=== PATIENT | female | born 1955 | race Caucasian/White ===

== ENCOUNTER 2020-06-11 21:02 | Observation (INO) ==
[2020-06-11] MEDS ORDERED: Isovue-370 500 ML BOTTLE IVP ONE (21:16)
[2020-06-11] MEDS ORDERED: Ondansetron 4 MG/2 ML VIAL IVP ONE (21:42)
[2020-06-11] MEDS ORDERED: 0.9 % Sodium Chloride 1,000 ML IVC ONE (21:42)
[2020-06-11 21:54] LABS: Basophils # 0.1 K/mcL (0.0-0.2); Basophils % 0.5 %; Eosinophils # 0.2 K/mcL (0.0-0.6); Eosinophils % 1.4 %; Hematocrit 40.7 % (35.3-44.9); Hemoglobin 13.3 g/dL (11.5-15.4); Immature Granulocytes % 0.3 % (0-4); Lymphocytes % 16.8 %; Mean Corpuscular HGB Conc 32.7 g/dL (31.6-35.5); Mean Corpuscular Volume 88.9 fL (83.0-100.0); Monocytes # 0.8 K/mcL (0.0-1.3); Monocytes % 6.7 %; Neutrophils # 8.8 K/mcL (1.6-8.9); Platelet Count 314 K/mcL (140-400); Red Blood Count 4.58 M/mcL (3.82-4.97); Red Cell Distribution Width 13.5 % (11.5-14.5); Segmented Neutrophils % 74.3 %; White Blood Count 11.8 K/mcL (4.3-11.1)
[2020-06-11 21:56] LABS: INR 1.4; Prothrombin Time 15.5 Seconds (9.4-12.1)
[2020-06-11 22:10] LABS: Albumin 5.1 g/dL (3.5-5.7); Albumin/Globulin Ratio 1.6 (1.1-2.2); Bilirubin,Direct 0.1 mg/dL (0.0-0.2); Bilirubin,Indirect 0.4 mg/dL (0.0-1.0); Bilirubin,Total 0.5 mg/dL (0.3-1.0); Calcium 7.9 mg/dL (8.6-10.3); Globulin 3.2 g/dL (2.4-3.5); Potassium 4.1 mEq/L (3.5-5.1); Total Protein 8.3 g/dL (6.4-8.9)
[2020-06-12] MEDS ORDERED: Ondansetron 4 MG/2 ML VIAL IVP PRN (00:48)
[2020-06-12] MEDS ORDERED: *HR* Promethazine 25 MG/ML VIAL IM PRN (00:48)
[2020-06-12] MEDS ORDERED: *HR* OxyCODONE Immed Rel 5 MG TABLET PO PRN (00:48)
[2020-06-12] MEDS ORDERED: Acetaminophen 325 MG TABLET PO PRN (00:48)
[2020-06-12] MEDS ORDERED: Naloxone 0.4 MG/ML INJ IVP PRN (00:48)
[2020-06-12] MEDS: Ringers Solution, Lactated 1,000 ML IVC SCH ×2 (01:35→08:56)
[2020-06-12] MEDS ORDERED: *HR* Labetalol 20 MG/4 ML SYRINGE IVP PRN (02:08)
[2020-06-12] MEDS: Venlafaxine XR (24 HR) 150 MG CAP.ER.24H PO SCH ×2 (02:14→20:12)
[2020-06-12] MEDS: ALPRAZolam 1 MG TABLET PO SCH ×3 (02:14→20:12)
[2020-06-12] MEDS ORDERED: Calcium Gluconate 1gm/50mL 1 GM/50 ML BAG IVPB ONE (02:21)
[2020-06-12] MEDS: Aspirin 81 MG TAB.CHEW PO SCH (07:58)
[2020-06-12] MEDS ORDERED: ALPRAZolam 1 MG TABLET PO SCH (09:00)
[2020-06-12] MEDS ORDERED: Venlafaxine XR (24 HR) 150 MG CAP.ER.24H PO SCH (09:00)
[2020-06-12 09:09] LABS: INR 1.4
[2020-06-12 09:11] LABS: Basophils % 0.4 %; Eosinophils # 0.2 K/mcL (0.0-0.6); Eosinophils % 2.7 %; Hematocrit 33.1 % (35.3-44.9); Immature Granulocytes % 0.3 % (0-4); Lymphocytes # 1.6 K/mcL (0.6-4.6); Lymphocytes % 24.3 %; Mean Corpuscular HGB Conc 33.2 g/dL (31.6-35.5); Mean Corpuscular Hemoglobin 30.1 pg (28.0-33.3); Mean Corpuscular Volume 90.7 fL (83.0-100.0); Mean Platelet Volume 10.6 fL (9.4-12.4); Monocytes # 0.6 K/mcL (0.0-1.3); Monocytes % 9.2 %; Neutrophils # 4.2 K/mcL (1.6-8.9); Platelet Count 210 K/mcL (140-400); Red Blood Count 3.65 M/mcL (3.82-4.97); Red Cell Distribution Width 13.5 % (11.5-14.5); Segmented Neutrophils % 63.1 %; White Blood Count 6.7 K/mcL (4.3-11.1)
[2020-06-12 09:47] LABS: BUN/Creatinine Ratio 21 (6-26); Blood Urea Nitrogen 71 mg/dL (8-23); Calcium 7.2 mg/dL (8.6-10.3); Carbon Dioxide 15 mEq/L (23-29); Chloride 111 mEq/L (98-107); Glucose 82 mg/dL (70-105); Magnesium < 0.5 mg/dL (1.6-2.6); Osmolality,Calculated 310 (280-300); Phosphorous 5.3 mg/dL (2.7-4.5); Potassium 3.6 mEq/L (3.5-5.1); Sodium 140 mEq/L (136-145); eGFR For African Americans 16 (> 60); eGFR For Non-African Americans 14 (> 60)
[2020-06-12] MEDS ORDERED: Lidocaine -MPF 2% 2 ML VIAL ONE (13:29)
[2020-06-12] MEDS ORDERED: *HR* Propofol 200 MG/20 ML VIAL IVP ONE (14:18)
[2020-06-12 17:31] LABS: Protein/Creatinine Ratio,Urine 0.25 mg/mg (0.00-0.20)
[2020-06-12 18:20] LABS: Bacteria,Urine Few per hpf (None-Few); Bilirubin,Urine Negative (Negative); Blood,Urine Negative (Negative); Clarity,Urine Turbid (Clear); Color,Urine Light-Yellow (Yellow); Glucose,Urine (UA) Normal (Normal); Hyaline Casts,Urine Few per lpf (None Seen); Ketones,Urine Negative (Negative); Leukocyte Esterase,Urine Large (Negative); Mucus,Urine Few per lpf (None-Few); Nitrite,Urine Negative (Negative); PH,Urine 5.5 pH Units (5.0-8.0); Protein,Urine Trace mg/dL (Neg-Trace); RBC,Urine 0-3 per hpf (0-3); Specific Gravity,Urine 1.018 (1.010-1.025); Squamous Epithelial Cell,Urine Moderate per hpf (None-Few); Transitional Epi Cells,Urine Moderate per hpf (None-Few); Urobilinogen,Urine Normal (Normal); WBC,Urine 50-100 per hpf (0-3); White Blood Cell Casts,Urine Few per lpf (None Seen)
[2020-06-13 06:58] LABS: Basophils % 0.3 %; Eosinophils # 0.2 K/mcL (0.0-0.6); Eosinophils % 3.9 %; Hematocrit 32.8 % (35.3-44.9); Hemoglobin 10.7 g/dL (11.5-15.4); Lymphocytes # 1.6 K/mcL (0.6-4.6); Lymphocytes % 26.7 %; Mean Corpuscular HGB Conc 32.6 g/dL (31.6-35.5); Mean Corpuscular Hemoglobin 29.9 pg (28.0-33.3); Mean Corpuscular Volume 91.6 fL (83.0-100.0); Mean Platelet Volume 11.4 fL (9.4-12.4); Monocytes # 0.5 K/mcL (0.0-1.3); Monocytes % 8.7 %; Neutrophils # 3.6 K/mcL (1.6-8.9); Platelet Count 206 K/mcL (140-400); Red Blood Count 3.58 M/mcL (3.82-4.97); Red Cell Distribution Width 13.5 % (11.5-14.5); Segmented Neutrophils % 60.4 %
[2020-06-13 07:16] LABS: Calcium 7.1 mg/dL (8.6-10.3); Potassium 3.6 mEq/L (3.5-5.1)
[2020-06-13] MEDS: ALPRAZolam 1 MG TABLET PO SCH (09:28)
[2020-06-13] MEDS: Aspirin 81 MG TAB.CHEW PO SCH (09:28)
[2020-06-13 15:55] VITALS: BP 145/71
[2020-06-15 08:50] LABS: Pancreatic Elastase, Fecal >800 ug/g (>=100)
== END 2020-06-13 16:57 | disposition home or self-care (01) ==
LOC: 3NENU 21:02 → EMEROOARM 21:02 → SUATTDRO 06-12 00:48 → 3NENU 06-12 01:25
PROVIDERS: ADMIT Family Medicine; ATTEND Pharmacist
PROC: ENDOEBX (2020-06-12 11:50)

== ENCOUNTER 2020-07-01 20:13 | Inpatient (IN) ==
[2020-07-01 21:07] LABS: Basophils % 0.6 %; Eosinophils # 0.2 K/mcL (0.0-0.6); Eosinophils % 3.4 %; Hematocrit 37.7 % (35.3-44.9); Hemoglobin 11.9 g/dL (11.5-15.4); Immature Granulocytes % 0.4 % (0-4); Lymphocytes % 15.3 %; Mean Corpuscular HGB Conc 31.6 g/dL (31.6-35.5); Mean Corpuscular Hemoglobin 29.3 pg (28.0-33.3); Mean Corpuscular Volume 92.9 fL (83.0-100.0); Mean Platelet Volume 10.2 fL (9.4-12.4); Monocytes # 0.4 K/mcL (0.0-1.3); Neutrophils # 5.1 K/mcL (1.6-8.9); Platelet Count 304 K/mcL (140-400); Red Blood Count 4.06 M/mcL (3.82-4.97); Red Cell Distribution Width 15.2 % (11.5-14.5); Segmented Neutrophils % 74.3 %; White Blood Count 6.8 K/mcL (4.3-11.1)
[2020-07-01 21:21] LABS: Albumin 4.1 g/dL (3.5-5.7); Albumin/Globulin Ratio 1.4 (1.1-2.2); Bilirubin,Total 0.7 mg/dL (0.3-1.0); Calcium 7.8 mg/dL (8.6-10.3); Globulin 2.9 g/dL (2.4-3.5); Potassium 3.4 mEq/L (3.5-5.1)
[2020-07-01 21:22] LABS: D-Dimer 2691 ng/mLFEU (0-500)
[2020-07-01 21:29] LABS: Troponin I 0.04 ng/mL (< 0.04)
[2020-07-01] MEDS ORDERED: cefTRIAXone 1,000 MG in Water for inj. (sterile) 10 ML IVP ONE (21:44)
[2020-07-01] MEDS ORDERED: Azithromycin 500 MG in 0.9 % Sodium Chloride 250 ML IVPB ONE (21:44)
[2020-07-01] MEDS ORDERED: Furosemide 40 MG/4 ML VIAL IVP ONE (21:45)
[2020-07-01] MEDS ORDERED: Aspirin 325 MG TABLET PO ONE (21:46)
[2020-07-01] MEDS ORDERED: *HR* Heparin 5,000 UNIT/ML VIAL IVP ONE (21:47)
[2020-07-01] MEDS ORDERED: *HR* Heparin 5,000 UNIT/ML VIAL IVP PRN ×2 (21:47)
[2020-07-01 21:56] LABS: Heparin anti-factor XA UFH < 0.04 IU/mL (0.30-0.70)
[2020-07-01] MEDS: Heparin 25,000UNIT/250ML 1/2NS 25,000 UNIT/250 ML IV.SOLN IVC SCH (22:48)
[2020-07-01] MEDS ORDERED: Perflutren Lipid Microsphere 1.3 ML in 0.9 % Sodium Chloride 8.7 ML IVP PRN (22:51)
[2020-07-01 23:54] LABS: Adenovirus Not Detected (Not Detect); Bordetella Pertussis Not Detected (Not Detect); Chlamydophila pneumoniae Not Detected (Not Detect); Coronavirus 229E Not Detected (Not Detect); Coronavirus HKU1 Not Detected (Not Detect); Coronavirus NL63 Not Detected (Not Detect); Coronavirus OC43 Not Detected (Not Detect); Human Metapneumovirus Not Detected (Not Detect); Human Rhinovirus/Enterovirus Not Detected (Not Detect); Influenza A Subtype 2009 H1 Not Detected (Not Detect); Influenza B Not Detected (Not Detect); Mycoplasma pneumoniae Not Detected (Not Detect); Parainfluenza Virus 1 Not Detected (Not Detect); Parainfluenza Virus 2 Not Detected (Not Detect); Parainfluenza Virus 3 Not Detected (Not Detect); Parainfluenza Virus 4 Not Detected (Not Detect); Respiratory Syncytial Virus Not Detected (Not Detect); SARS-CoV-2 Not Detected (Not Detect)
[2020-07-02] MEDS ORDERED: Acetaminophen 325 MG TABLET PO PRN (00:10)
[2020-07-02] MEDS ORDERED: Ondansetron ODT 4 MG TAB.RAPDIS SL PRN (00:10)
[2020-07-02] MEDS ORDERED: Naloxone 0.4 MG/ML INJ IVP PRN (00:10)
[2020-07-02] MEDS ORDERED: *HR* LORazepam 1 MG TABLET PO ONE (01:20)
[2020-07-02] MEDS ORDERED: ALPRAZolam 1 MG TABLET PO ONE (01:31)
[2020-07-02 01:54] LABS: Bacteria,Urine Few per hpf (None-Few); Bilirubin,Urine Negative (Negative); Blood,Urine Negative (Negative); Clarity,Urine Clear (Clear); Color,Urine Colorless (Yellow); Glucose,Urine (UA) Normal (Normal); Hyaline Casts,Urine Few per lpf (None Seen); Ketones,Urine Negative (Negative); Leukocyte Esterase,Urine Large (Negative); Mucus,Urine Few per lpf (None-Few); Nitrite,Urine Negative (Negative); PH,Urine 5.5 pH Units (5.0-8.0); Protein,Urine Negative (Neg-Trace); Specific Gravity,Urine 1.008 (1.010-1.025); Squamous Epithelial Cell,Urine Few per hpf (None-Few); Transitional Epi Cells,Urine Few per hpf (None-Few); Urobilinogen,Urine Normal (Normal); WBC,Urine 50-100 per hpf (0-3)
[2020-07-02 03:08] LABS: Hematocrit 34.1 % (35.3-44.9); Hemoglobin 10.8 g/dL (11.5-15.4); Mean Corpuscular HGB Conc 31.7 g/dL (31.6-35.5); Mean Corpuscular Hemoglobin 29.3 pg (28.0-33.3); Mean Corpuscular Volume 92.7 fL (83.0-100.0); Mean Platelet Volume 10.6 fL (9.4-12.4); Platelet Count 269 K/mcL (140-400); Red Blood Count 3.68 M/mcL (3.82-4.97); Red Cell Distribution Width 15.2 % (11.5-14.5); White Blood Count 7.1 K/mcL (4.3-11.1)
[2020-07-02 03:17] LABS: INR 1.4; Prothrombin Time 16.3 Seconds (9.4-12.1)
[2020-07-02 03:22] LABS: Calcium 7.2 mg/dL (8.6-10.3); Magnesium 0.7 mg/dL (1.6-2.6); Phosphorous 4.1 mg/dL (2.7-4.5); Potassium 3.1 mEq/L (3.5-5.1)
[2020-07-02] MEDS: cefTRIAXone 1,000 MG in 0.9 % Sodium Chloride Mini Bag 100 ML IVPB SCH (08:45)
[2020-07-02] MEDS ORDERED: Azithromycin 500 MG in 0.9 % Sodium Chloride 250 ML IVPB SCH (09:00)
[2020-07-02] MEDS ORDERED: *HR* Dextrose 50 % in Water (Vial) 50 ML VIAL IVP PRN (15:20)
[2020-07-02] MEDS ORDERED: Dextrose Gel 15 GM/37.5 ML TUBE PO PRN ×2 (15:20)
[2020-07-02] MEDS ORDERED: D5% in Water 1,000 ML IVC PRN (15:20)
[2020-07-02] MEDS ORDERED: Insulin LISPRO 300 UNITS/3 ML VIAL SQ SCH (18:00)
[2020-07-02] MEDS: Furosemide 40 MG/4 ML VIAL IVP SCH (18:08)
[2020-07-02] MEDS: Insulin LISPRO 300 UNITS/3 ML VIAL SQ SCH (19:30)
[2020-07-02] MEDS: ALPRAZolam 1 MG TABLET PO SCH (19:47)
[2020-07-02] MEDS: Doxycycline 100 MG CAPSULE PO SCH (19:47)
[2020-07-02] MEDS ORDERED: *HR* LORazepam 2 MG/ML VIAL IVP ONE (21:34)
[2020-07-02] MEDS: Heparin 25,000UNIT/250ML 1/2NS 25,000 UNIT/250 ML IV.SOLN IVC SCH (23:06)
[2020-07-03 07:11] LABS: Hemoglobin 11.1 g/dL (11.5-15.4); Mean Corpuscular HGB Conc 31.7 g/dL (31.6-35.5); Mean Corpuscular Hemoglobin 29.8 pg (28.0-33.3); Mean Corpuscular Volume 94.1 fL (83.0-100.0); Mean Platelet Volume 10.4 fL (9.4-12.4); Platelet Count 280 K/mcL (140-400); Red Blood Count 3.72 M/mcL (3.82-4.97); Red Cell Distribution Width 15.4 % (11.5-14.5); White Blood Count 8.3 K/mcL (4.3-11.1)
[2020-07-03 07:13] LABS: Calcium 7.6 mg/dL (8.6-10.3); Magnesium 1.7 mg/dL (1.6-2.6); Phosphorous 4.3 mg/dL (2.7-4.5); Potassium 3.8 mEq/L (3.5-5.1)
[2020-07-03 07:45] LABS: Estimated Average Glucose 108 mg/dl; Hemoglobin A1C 5.4 %
[2020-07-03] MEDS: Insulin LISPRO 300 UNITS/3 ML VIAL SQ SCH ×5 (08:03→21:13)
[2020-07-03] MEDS: Venlafaxine XR (24 HR) 150 MG CAP.ER.24H PO SCH (09:07)
[2020-07-03] MEDS: Doxycycline 100 MG CAPSULE PO SCH ×2 (09:07→20:32)
[2020-07-03] MEDS: cefTRIAXone 1,000 MG in 0.9 % Sodium Chloride Mini Bag 100 ML IVPB SCH (09:07)
[2020-07-03] MEDS: ALPRAZolam 0.5 MG TABLET PO SCH ×2 (09:07→12:11)
[2020-07-03] MEDS: Aspirin Enteric Coated 81 MG Tablet PO SCH (09:07)
[2020-07-03] MEDS: Furosemide 40 MG/4 ML VIAL IVP SCH (09:08)
[2020-07-03] MEDS: amLODIPine 5 MG TABLET PO SCH (09:08)
[2020-07-03] MEDS: Heparin 25,000UNIT/250ML 1/2NS 25,000 UNIT/250 ML IV.SOLN IVC SCH (16:57)
[2020-07-03] MEDS: *HR* Heparin 5,000 UNIT/ML VIAL SQ SCH (18:49)
[2020-07-03] MEDS: ALPRAZolam 1 MG TABLET PO SCH (20:32)
[2020-07-04] MEDS: Melatonin 3 MG TABLET PO PRN ×2 (00:18→22:36)
[2020-07-04 02:25] LABS: Basophils % 0.3 %; Eosinophils # 0.4 K/mcL (0.0-0.6); Eosinophils % 3.9 %; Hematocrit 34.4 % (35.3-44.9); Hemoglobin 10.8 g/dL (11.5-15.4); Immature Granulocytes % 0.3 % (0-4); Lymphocytes # 1.1 K/mcL (0.6-4.6); Lymphocytes % 11.8 %; Mean Corpuscular HGB Conc 31.4 g/dL (31.6-35.5); Mean Corpuscular Hemoglobin 29.2 pg (28.0-33.3); Mean Platelet Volume 10.2 fL (9.4-12.4); Monocytes # 0.6 K/mcL (0.0-1.3); Monocytes % 6.7 %; Neutrophils # 7.1 K/mcL (1.6-8.9); Platelet Count 299 K/mcL (140-400); White Blood Count 9.3 K/mcL (4.3-11.1)
[2020-07-04 02:34] LABS: Calcium 7.4 mg/dL (8.6-10.3); Magnesium 1.4 mg/dL (1.6-2.6); Phosphorous 4.6 mg/dL (2.7-4.5); Potassium 4.1 mEq/L (3.5-5.1)
[2020-07-04] MEDS: *HR* Heparin 5,000 UNIT/ML VIAL SQ SCH ×2 (05:21→17:15)
[2020-07-04] MEDS: Insulin LISPRO 300 UNITS/3 ML VIAL SQ SCH ×4 (07:42→20:48)
[2020-07-04] MEDS: ALPRAZolam 0.5 MG TABLET PO SCH ×2 (07:53→11:44)
[2020-07-04] MEDS: Aspirin Enteric Coated 81 MG Tablet PO SCH (07:53)
[2020-07-04] MEDS: Venlafaxine XR (24 HR) 150 MG CAP.ER.24H PO SCH (07:54)
[2020-07-04] MEDS: amLODIPine 5 MG TABLET PO SCH (07:54)
[2020-07-04] MEDS: cefTRIAXone 1,000 MG in 0.9 % Sodium Chloride Mini Bag 100 ML IVPB SCH (07:54)
[2020-07-04] MEDS: Furosemide 40 MG/4 ML VIAL IVP SCH (07:54)
[2020-07-04] MEDS: Doxycycline 100 MG CAPSULE PO SCH ×2 (07:54→20:47)
[2020-07-04] MEDS ORDERED: Magnesium Sulfate 1 GM/102 ML PIGGYBACK IVPB ONE (08:10)
[2020-07-04 10:03] LABS: ABG Base Excess -6 mEq/L (-2 to 3); ABG HCO3 19 mEq/L (21-27); ABG Oxygen Saturation 91 % (95-98); ABG PCO2 36 mmHg (35-45); ABG PH 7.33 pH Units (7.32-7.45); ABG PO2 65 mmHg (85-104); ABG TCO2 20 mEq/L (20-26); Blood Gas Pressure Support 12 cm H2O
[2020-07-04] MEDS ORDERED: Bumetanide 1 MG/4 ML VIAL IVP SCH (17:00)
[2020-07-04] MEDS: MethylPREDNISolone 40 MG/ML VIAL IVP SCH (17:15)
[2020-07-04] MEDS: ALPRAZolam 1 MG TABLET PO SCH (20:47)
[2020-07-04] MEDS: Budesonide/Formoterol 160/4.5 1 PUFF INH IH SCH (21:01)
[2020-07-05 04:12] LABS: Hematocrit 31.4 % (35.3-44.9)
[2020-07-05 04:23] LABS: Calcium 7.9 mg/dL (8.6-10.3); Magnesium 1.8 mg/dL (1.6-2.6); Phosphorous 5.5 mg/dL (2.7-4.5); Potassium 4.1 mEq/L (3.5-5.1)
[2020-07-05] MEDS: MethylPREDNISolone 40 MG/ML VIAL IVP SCH (06:00)
[2020-07-05] MEDS: *HR* Heparin 5,000 UNIT/ML VIAL SQ SCH ×2 (06:01→16:11)
[2020-07-05] MEDS: Insulin LISPRO 300 UNITS/3 ML VIAL SQ SCH ×4 (07:43→20:20)
[2020-07-05] MEDS: Aspirin Enteric Coated 81 MG Tablet PO SCH (08:53)
[2020-07-05] MEDS: Doxycycline 100 MG CAPSULE PO SCH ×2 (08:53→20:19)
[2020-07-05] MEDS: ALPRAZolam 0.5 MG TABLET PO SCH ×2 (08:53→12:03)
[2020-07-05] MEDS: amLODIPine 5 MG TABLET PO SCH (08:54)
[2020-07-05] MEDS: Budesonide/Formoterol 160/4.5 1 PUFF INH IH SCH ×2 (10:31→20:11)
[2020-07-05] MEDS: Albumin 25% 25gram/100mL 25 GM/100 ML IV.SOLN IVPB SCH (16:10)
[2020-07-05] MEDS: ALPRAZolam 1 MG TABLET PO SCH (20:19)
[2020-07-05] MEDS: Melatonin 3 MG TABLET PO PRN (21:23)
[2020-07-06] MEDS: Albumin 25% 25gram/100mL 25 GM/100 ML IV.SOLN IVPB SCH ×4 (00:35→23:09)
[2020-07-06] MEDS: *HR* Heparin 5,000 UNIT/ML VIAL SQ SCH ×2 (06:06→16:31)
[2020-07-06] MEDS: predniSONE 20 MG TABLET PO SCH (09:11)
[2020-07-06] MEDS: ALPRAZolam 0.5 MG TABLET PO SCH ×2 (09:11→12:59)
[2020-07-06] MEDS: Doxycycline 100 MG CAPSULE PO SCH ×2 (09:12→20:55)
[2020-07-06] MEDS: amLODIPine 5 MG TABLET PO SCH (09:12)
[2020-07-06] MEDS: Aspirin Enteric Coated 81 MG Tablet PO SCH (09:12)
[2020-07-06] MEDS: Insulin LISPRO 300 UNITS/3 ML VIAL SQ SCH ×4 (09:14→21:46)
[2020-07-06] MEDS: Budesonide/Formoterol 160/4.5 1 PUFF INH IH SCH ×2 (11:35→22:07)
[2020-07-06 17:01] LABS: Calcium 9.7 mg/dL (8.6-10.3); Magnesium 1.7 mg/dL (1.6-2.6); Phosphorous 3.9 mg/dL (2.7-4.5); Potassium 5.1 mEq/L (3.5-5.1)
[2020-07-06] MEDS: ALPRAZolam 1 MG TABLET PO SCH (20:55)
[2020-07-06] MEDS: Melatonin 3 MG TABLET PO PRN (23:38)
[2020-07-07 05:05] LABS: Basophils % 0.2 %; Eosinophils # 0.1 K/mcL (0.0-0.6); Eosinophils % 0.5 %; Hematocrit 31.5 % (35.3-44.9); Hemoglobin 9.8 g/dL (11.5-15.4); Immature Granulocytes % 0.6 % (0-4); Lymphocytes % 9.8 %; Mean Corpuscular HGB Conc 31.1 g/dL (31.6-35.5); Mean Corpuscular Hemoglobin 29.1 pg (28.0-33.3); Mean Corpuscular Volume 93.5 fL (83.0-100.0); Mean Platelet Volume 10.6 fL (9.4-12.4); Monocytes # 0.6 K/mcL (0.0-1.3); Monocytes % 6.1 %; Neutrophils # 8.2 K/mcL (1.6-8.9); Nucleated Red Blood Cells 0.3 /100 WBC (0); Platelet Count 313 K/mcL (140-400); Red Blood Count 3.37 M/mcL (3.82-4.97); Red Cell Distribution Width 14.7 % (11.5-14.5); Segmented Neutrophils % 82.8 %; White Blood Count 9.9 K/mcL (4.3-11.1)
[2020-07-07] MEDS: *HR* Heparin 5,000 UNIT/ML VIAL SQ SCH ×2 (05:11→17:34)
[2020-07-07 05:15] LABS: Calcium 9.7 mg/dL (8.6-10.3); Magnesium 1.7 mg/dL (1.6-2.6); Potassium 4.4 mEq/L (3.5-5.1)
[2020-07-07] MEDS: Budesonide/Formoterol 160/4.5 1 PUFF INH IH SCH ×2 (07:58→19:39)
[2020-07-07] MEDS: Insulin LISPRO 300 UNITS/3 ML VIAL SQ SCH ×4 (08:44→20:27)
[2020-07-07] MEDS: predniSONE 20 MG TABLET PO SCH (08:55)
[2020-07-07] MEDS: ALPRAZolam 0.5 MG TABLET PO SCH ×2 (08:55→12:44)
[2020-07-07] MEDS: amLODIPine 5 MG TABLET PO SCH (08:55)
[2020-07-07] MEDS: Aspirin Enteric Coated 81 MG Tablet PO SCH (08:55)
[2020-07-07] MEDS: Doxycycline 100 MG CAPSULE PO SCH ×2 (08:55→20:24)
[2020-07-07] MEDS: Albumin 25% 25gram/100mL 25 GM/100 ML IV.SOLN IVPB SCH (08:56)
[2020-07-07] MEDS: Bumetanide 1 MG/4 ML VIAL IVP SCH ×2 (09:34→17:34)
[2020-07-07] MEDS: Ipratropium/Albuterol Neb 3 ML IH PRN ×2 (11:26→19:44)
[2020-07-07] MEDS: hydrALAZINE 25 MG TABLET PO SCH ×2 (14:40→23:51)
[2020-07-07] MEDS: ALPRAZolam 1 MG TABLET PO SCH (20:24)
[2020-07-07 22:50] LABS: ABG Base Excess 1 mEq/L (-2 to 3); ABG HCO3 27 mEq/L (21-27); ABG Oxygen Saturation 90 % (95-98); ABG PCO2 46 mmHg (35-45); ABG PH 7.37 pH Units (7.32-7.45); ABG PO2 61 mmHg (85-104); ABG TCO2 28 mEq/L (20-26)
[2020-07-07] MEDS: Melatonin 3 MG TABLET PO PRN (23:51)
[2020-07-08] MEDS: Ipratropium/Albuterol Neb 3 ML IH PRN (03:51)
[2020-07-08 04:10] LABS: Calcium 9.6 mg/dL (8.6-10.3); Magnesium 1.6 mg/dL (1.6-2.6); Phosphorous 4.8 mg/dL (2.7-4.5); Potassium 4.2 mEq/L (3.5-5.1)
[2020-07-08] MEDS: *HR* Heparin 5,000 UNIT/ML VIAL SQ SCH ×2 (05:02→17:33)
[2020-07-08] MEDS: Insulin LISPRO 300 UNITS/3 ML VIAL SQ SCH ×4 (07:14→21:12)
[2020-07-08] MEDS: amLODIPine 5 MG TABLET PO SCH (08:32)
[2020-07-08] MEDS: ALPRAZolam 0.5 MG TABLET PO SCH ×2 (08:32→13:02)
[2020-07-08] MEDS: Bumetanide 1 MG/4 ML VIAL IVP SCH ×2 (08:33→17:32)
[2020-07-08] MEDS: Aspirin Enteric Coated 81 MG Tablet PO SCH (08:33)
[2020-07-08] MEDS: hydrALAZINE 25 MG TABLET PO SCH ×2 (08:33→17:33)
[2020-07-08] MEDS: predniSONE 20 MG TABLET PO SCH (08:33)
[2020-07-08] MEDS: Budesonide/Formoterol 160/4.5 1 PUFF INH IH SCH ×2 (10:42→19:45)
[2020-07-08] MEDS: ALPRAZolam 1 MG TABLET PO SCH (21:13)
[2020-07-09] MEDS: hydrALAZINE 25 MG TABLET PO SCH ×3 (00:10→16:09)
[2020-07-09] MEDS: Melatonin 3 MG TABLET PO PRN (00:10)
[2020-07-09 04:05] LABS: Magnesium 1.7 mg/dL (1.6-2.6); Phosphorous 4.8 mg/dL (2.7-4.5); Potassium 3.9 mEq/L (3.5-5.1)
[2020-07-09] MEDS: *HR* Heparin 5,000 UNIT/ML VIAL SQ SCH ×2 (05:02→16:58)
[2020-07-09] MEDS: Budesonide/Formoterol 160/4.5 1 PUFF INH IH SCH (07:32)
[2020-07-09] MEDS: Insulin LISPRO 300 UNITS/3 ML VIAL SQ SCH ×4 (08:03→20:24)
[2020-07-09] MEDS: ALPRAZolam 0.5 MG TABLET PO SCH ×2 (08:25→12:05)
[2020-07-09] MEDS: amLODIPine 5 MG TABLET PO SCH (08:25)
[2020-07-09] MEDS: Bumetanide 1 MG/4 ML VIAL IVP SCH ×2 (08:25→16:09)
[2020-07-09] MEDS: Aspirin Enteric Coated 81 MG Tablet PO SCH (08:26)
[2020-07-09] MEDS: predniSONE 20 MG TABLET PO SCH (08:26)
[2020-07-09] MEDS: Doxycycline 100 MG in 0.9 % Sodium Chloride Mini Bag 100 ML IVPB SCH (16:57)
[2020-07-09 18:10] LABS: RBC,Pleural Fluid < 2000 RBC/mcL
[2020-07-09 19:27] LABS: Glucose,Pleural Fluid 166 mg/dL (No Ref Range); LDH,Pleural Fluid 59 Units/L (No Ref Range); Total Protein,Pleural Fluid < 2.0 g/dL
[2020-07-09 19:53] LABS: Basophils,Pleural Fluid 0 %; Eosinophils,Pleural Fluid 0 %
[2020-07-09] MEDS: ALPRAZolam 1 MG TABLET PO SCH (20:15)
[2020-07-09 23:48] LABS: Appearance of Pleural Fl Clear (Clear)
[2020-07-10] MEDS: Budesonide/Formoterol 160/4.5 1 PUFF INH IH SCH ×2 (00:11→07:39)
[2020-07-10] MEDS: hydrALAZINE 25 MG TABLET PO SCH ×3 (00:12→15:58)
[2020-07-10] MEDS: Doxycycline 100 MG in 0.9 % Sodium Chloride Mini Bag 100 ML IVPB SCH (05:00)
[2020-07-10] MEDS: *HR* Heparin 5,000 UNIT/ML VIAL SQ SCH (05:00)
[2020-07-10] MEDS: Insulin LISPRO 300 UNITS/3 ML VIAL SQ SCH ×3 (07:20→15:54)
[2020-07-10] MEDS: predniSONE 20 MG TABLET PO SCH (07:46)
[2020-07-10] MEDS: ALPRAZolam 0.5 MG TABLET PO SCH ×2 (07:46→11:59)
[2020-07-10] MEDS: Bumetanide 1 MG/4 ML VIAL IVP SCH ×2 (07:46→15:58)
[2020-07-10] MEDS: amLODIPine 5 MG TABLET PO SCH (07:46)
[2020-07-10] MEDS: Aspirin Enteric Coated 81 MG Tablet PO SCH (07:46)
[2020-07-10 15:55] VITALS: BP 172/73
[2020-07-10 16:00] LABS: Calcium 10.6 mg/dL (8.6-10.3); Magnesium 1.6 mg/dL (1.6-2.6); Phosphorous 4.6 mg/dL (2.7-4.5); Potassium 4.4 mEq/L (3.5-5.1)
== END 2020-07-10 16:47 | disposition home health service (06) | DRG 291 ==
LOC: EMEROOARM 20:13 → 2ANU 20:13 → SUATTDRO 22:39 → 2ANU 07-02 00:43
PROVIDERS: ADMIT Internal Medicine; ATTEND Internal Medicine

== ENCOUNTER 2020-08-30 12:46 | Inpatient (IN) ==
[2020-08-30] MEDS ORDERED: Ipratropium/Albuterol Neb 3 ML IH ONE (13:00)
[2020-08-30 13:46] LABS: Basophils % 0.4 %; Eosinophils # 0.2 K/mcL (0.0-0.6); Eosinophils % 2.2 %; Hematocrit 37.4 % (35.3-44.9); Hemoglobin 11.7 g/dL (11.5-15.4); Immature Granulocytes % 0.3 % (0-4); Lymphocytes # 1.1 K/mcL (0.6-4.6); Lymphocytes % 15.6 %; Mean Corpuscular HGB Conc 31.3 g/dL (31.6-35.5); Mean Corpuscular Hemoglobin 29.3 pg (28.0-33.3); Mean Corpuscular Volume 93.5 fL (83.0-100.0); Mean Platelet Volume 10.6 fL (9.4-12.4); Monocytes # 0.4 K/mcL (0.0-1.3); Monocytes % 6.1 %; Neutrophils # 5.1 K/mcL (1.6-8.9); Platelet Count 258 K/mcL (140-400); Segmented Neutrophils % 75.4 %; White Blood Count 6.7 K/mcL (4.3-11.1)
[2020-08-30 14:14] LABS: Calcium 10.3 mg/dL (8.6-10.3); Troponin I 0.03 ng/mL (< 0.04)
[2020-08-30] MEDS ORDERED: Furosemide 40 MG/4 ML VIAL IVP ONE (14:45)
[2020-08-30] MEDS ORDERED: *HR* Enoxaparin 80 MG/0.8 ML SYRINGE SQ STA (14:53)
[2020-08-30] MEDS ORDERED: *HR* Dextrose 50 % in Water (Vial) 50 ML VIAL IVP PRN (17:51)
[2020-08-30] MEDS ORDERED: D5% in Water 1,000 ML IVC PRN (17:51)
[2020-08-30] MEDS ORDERED: Dextrose Gel 15 GM/37.5 ML TUBE PO PRN ×2 (17:51)
[2020-08-30 19:35] LABS: Estimated Average Glucose 77 mg/dl; Hemoglobin A1C 4.3 %
[2020-08-30] MEDS: Insulin DETEMIR 100 UNIT/ML X5UNITS SUBQ SCH (19:54)
[2020-08-30] MEDS: ALPRAZolam 1 MG TABLET PO PRN (19:54)
[2020-08-30] MEDS: Budesonide/Formoterol 160/4.5 1 PUFF INH IH SCH (21:28)
[2020-08-30] MEDS: hydrALAZINE 25 MG TABLET PO SCH (21:58)
[2020-08-31 00:50] LABS: Basophils % 0.5 %; Eosinophils # 0.2 K/mcL (0.0-0.6); Eosinophils % 3.4 %; Hematocrit 33.5 % (35.3-44.9); Hemoglobin 10.4 g/dL (11.5-15.4); Immature Granulocytes % 0.2 % (0-4); Lymphocytes # 1.3 K/mcL (0.6-4.6); Lymphocytes % 19.5 %; Mean Corpuscular Hemoglobin 28.1 pg (28.0-33.3); Mean Corpuscular Volume 90.5 fL (83.0-100.0); Mean Platelet Volume 10.1 fL (9.4-12.4); Monocytes # 0.4 K/mcL (0.0-1.3); Monocytes % 6.4 %; Neutrophils # 4.6 K/mcL (1.6-8.9); Platelet Count 222 K/mcL (140-400); Red Cell Distribution Width 14.3 % (11.5-14.5); White Blood Count 6.5 K/mcL (4.3-11.1)
[2020-08-31] MEDS: ALPRAZolam 1 MG TABLET PO PRN ×3 (05:18→20:02)
[2020-08-31] MEDS: Insulin LISPRO 300 UNITS/3 ML VIAL SUBQ SCH ×3 (07:18→15:37)
[2020-08-31] MEDS: amLODIPine 5 MG TABLET PO SCH (07:25)
[2020-08-31] MEDS: Bumetanide 1 MG/4 ML VIAL IVP SCH ×2 (07:25→15:26)
[2020-08-31] MEDS: Aspirin Enteric Coated 81 MG Tablet PO SCH (07:25)
[2020-08-31] MEDS: hydrALAZINE 25 MG TABLET PO SCH ×3 (07:26→20:02)
[2020-08-31 07:36] LABS: Albumin 3.9 g/dL (3.5-5.7); Albumin/Globulin Ratio 1.4 (1.1-2.2); Bilirubin,Total 0.7 mg/dL (0.3-1.0); Calcium 9.7 mg/dL (8.6-10.3); Globulin 2.8 g/dL (2.4-3.5); Potassium 3.5 mEq/L (3.5-5.1); Total Protein 6.7 g/dL (6.4-8.9)
[2020-08-31] MEDS: Budesonide/Formoterol 160/4.5 1 PUFF INH IH SCH ×2 (07:39→20:12)
[2020-08-31] MEDS ORDERED: Bumetanide 1 MG/4 ML VIAL IVP SCH (09:00)
[2020-08-31] MEDS ORDERED: Albumin Human 5% 12.5 GM/250 ML IV.SOLN IVPB ONE (10:57)
[2020-08-31] MEDS: Insulin DETEMIR 100 UNIT/ML X5UNITS SUBQ SCH (20:04)
[2020-09-01 04:18] LABS: Potassium 3.5 mEq/L (3.5-5.1)
[2020-09-01] MEDS: ALPRAZolam 1 MG TABLET PO PRN ×3 (05:07→15:16)
[2020-09-01] MEDS: Budesonide/Formoterol 160/4.5 1 PUFF INH IH SCH ×2 (07:42→20:22)
[2020-09-01] MEDS: Ipratropium/Albuterol Neb 3 ML IH PRN ×2 (07:42→11:13)
[2020-09-01] MEDS: Aspirin Enteric Coated 81 MG Tablet PO SCH (07:52)
[2020-09-01] MEDS: hydrALAZINE 25 MG TABLET PO SCH ×3 (07:52→20:35)
[2020-09-01] MEDS: amLODIPine 5 MG TABLET PO SCH (07:52)
[2020-09-01] MEDS: Insulin LISPRO 300 UNITS/3 ML VIAL SUBQ SCH ×3 (07:55→16:22)
[2020-09-01] MEDS: Bumetanide 1 MG/4 ML VIAL IVP SCH ×2 (07:55→16:47)
[2020-09-01] MEDS ORDERED: Albumin Human 5% 12.5 GM/250 ML IV.SOLN IVPB ONE (10:10)
[2020-09-01 14:29] LABS: Adenovirus Not Detected (Not Detect); Bordetella Pertussis Not Detected (Not Detect); Chlamydophila pneumoniae Not Detected (Not Detect); Coronavirus 229E Not Detected (Not Detect); Coronavirus HKU1 Not Detected (Not Detect); Coronavirus NL63 Not Detected (Not Detect); Coronavirus OC43 Not Detected (Not Detect); Human Metapneumovirus Not Detected (Not Detect); Human Rhinovirus/Enterovirus Not Detected (Not Detect); Influenza A Subtype 2009 H1 Not Detected (Not Detect); Influenza B Not Detected (Not Detect); Mycoplasma pneumoniae Not Detected (Not Detect); Parainfluenza Virus 1 Not Detected (Not Detect); Parainfluenza Virus 2 Not Detected (Not Detect); Parainfluenza Virus 3 Not Detected (Not Detect); Parainfluenza Virus 4 Not Detected (Not Detect); Respiratory Syncytial Virus Not Detected (Not Detect); SARS-CoV-2 Not Detected (Not Detect)
[2020-09-01] MEDS ORDERED: Morphine Sulfate 2 MG/ML SYRINGE IVP ONE (21:51)
[2020-09-02] MEDS ORDERED: Bumetanide 1 MG/4 ML VIAL IVP ONE (00:53)
[2020-09-02 01:21] LABS: RBC,Pleural Fluid 3000 RBC/mcL
[2020-09-02 01:26] LABS: Appearance of Pleural Fl Clear (Clear)
[2020-09-02] MEDS: *HR* LORazepam 2 MG/ML VIAL IVP PRN (01:27)
[2020-09-02 01:29] LABS: Total Protein,Pleural Fluid 2.4 g/dL
[2020-09-02 02:06] LABS: Basophils % 0.3 %; Eosinophils # 0.2 K/mcL (0.0-0.6); Eosinophils % 2.5 %; Hematocrit 36.4 % (35.3-44.9); Hemoglobin 11.5 g/dL (11.5-15.4); Immature Granulocytes % 0.2 % (0-4); Lymphocytes # 0.6 K/mcL (0.6-4.6); Lymphocytes % 6.2 %; Mean Corpuscular HGB Conc 31.6 g/dL (31.6-35.5); Mean Corpuscular Hemoglobin 29.2 pg (28.0-33.3); Mean Corpuscular Volume 92.4 fL (83.0-100.0); Mean Platelet Volume 10.6 fL (9.4-12.4); Monocytes # 0.4 K/mcL (0.0-1.3); Monocytes % 4.3 %; Neutrophils # 7.9 K/mcL (1.6-8.9); Platelet Count 243 K/mcL (140-400); Red Blood Count 3.94 M/mcL (3.82-4.97); Red Cell Distribution Width 14.1 % (11.5-14.5); Segmented Neutrophils % 86.5 %; White Blood Count 9.2 K/mcL (4.3-11.1)
[2020-09-02 02:21] LABS: Basophils,Pleural Fluid 0 %; Eosinophils,Pleural Fluid 0 %
[2020-09-02 02:25] LABS: Albumin 4.4 g/dL (3.5-5.7); Albumin/Globulin Ratio 1.5 (1.1-2.2); Total Protein 7.4 g/dL (6.4-8.9)
[2020-09-02 02:28] LABS: Calcium 10.2 mg/dL (8.6-10.3)
[2020-09-02] MEDS: Morphine Sulfate 2 MG/ML SYRINGE IVP PRN (05:26)
[2020-09-02] MEDS: hydrALAZINE 25 MG TABLET PO SCH ×3 (08:12→20:04)
[2020-09-02] MEDS: Aspirin Enteric Coated 81 MG Tablet PO SCH (08:12)
[2020-09-02] MEDS: amLODIPine 5 MG TABLET PO SCH (08:12)
[2020-09-02] MEDS: Bumetanide 1 MG/4 ML VIAL IVP SCH ×2 (08:13→16:03)
[2020-09-02] MEDS: Insulin LISPRO 300 UNITS/3 ML VIAL SUBQ SCH ×3 (08:21→16:09)
[2020-09-02] MEDS ORDERED: Albumin 25% 12.5gm/50mL 12.5 GM/50 ML IV.SOLN IVPB ONE (10:42)
[2020-09-02] MEDS: Budesonide/Formoterol 160/4.5 1 PUFF INH IH SCH ×2 (11:34→20:15)
[2020-09-02] MEDS: ALPRAZolam 1 MG TABLET PO PRN (17:26)
[2020-09-03 02:09] LABS: Calcium 9.3 mg/dL (8.6-10.3); Potassium 3.9 mEq/L (3.5-5.1)
[2020-09-03] MEDS: ALPRAZolam 1 MG TABLET PO PRN ×3 (03:32→20:21)
[2020-09-03] MEDS: Bumetanide 1 MG/4 ML VIAL IVP SCH ×2 (08:09→17:35)
[2020-09-03] MEDS: Insulin LISPRO 300 UNITS/3 ML VIAL SUBQ SCH ×3 (08:09→17:35)
[2020-09-03] MEDS: amLODIPine 5 MG TABLET PO SCH (08:10)
[2020-09-03] MEDS: hydrALAZINE 25 MG TABLET PO SCH ×3 (08:10→20:21)
[2020-09-03] MEDS: Aspirin Enteric Coated 81 MG Tablet PO SCH (08:10)
[2020-09-03] MEDS: Budesonide/Formoterol 160/4.5 1 PUFF INH IH SCH ×2 (11:29→20:15)
[2020-09-03 11:50] LABS: Uric Acid 9.1 mg/dL (2.3-7.6)
[2020-09-03] MEDS ORDERED: Ondansetron 4 MG/2 ML VIAL ONE (14:38)
[2020-09-03] MEDS ORDERED: Ondansetron 4 MG/2 ML VIAL IVP PRN (14:40)
[2020-09-03 15:00] LABS: ABG Base Excess 0 mEq/L (-2 to 3); ABG HCO3 27 mEq/L (21-27); ABG Oxygen Saturation 93 % (95-98); ABG PCO2 51 mmHg (35-45); ABG PH 7.33 pH Units (7.32-7.45); ABG PO2 72 mmHg (85-104); ABG TCO2 28 mEq/L (20-26); Blood Gas VT 450 cc
[2020-09-03] MEDS: Ipratropium/Albuterol Neb 3 ML IH PRN (15:03)
[2020-09-03] MEDS: *HR* Heparin 5,000 UNIT/ML VIAL SQ SCH (17:35)
[2020-09-03] MEDS: Albumin 25% 25gram/100mL 25 GM/100 ML IV.SOLN IVPB SCH (17:35)
[2020-09-03] MEDS: *HR* LORazepam 2 MG/ML VIAL IVP PRN (21:46)
[2020-09-03] MEDS: Morphine Sulfate 2 MG/ML SYRINGE IVP PRN (21:46)
[2020-09-03 22:26] LABS: Protein/Creatinine Ratio,Urine 5.9 mg/mg (0.00-0.20); Sodium, Urine 60.8 mEq/L
[2020-09-03 23:10] LABS: Bilirubin,Urine Negative (Negative); Blood,Urine Small (Negative); Clarity,Urine Turbid (Clear); Color,Urine Yellow (Yellow); Glucose,Urine (UA) Normal (Normal); Hyaline Casts,Urine Moderate per lpf (None Seen); Ketones,Urine Negative (Negative); Leukocyte Esterase,Urine Trace (Negative); Mucus,Urine Few per lpf (None-Few); Nitrite,Urine Negative (Negative); Protein,Urine >=300 mg/dL (Neg-Trace); RBC,Urine 15-30 per hpf (0-3); Specific Gravity,Urine 1.016 (1.010-1.025); Squamous Epithelial Cell,Urine Few per hpf (None-Few); Urobilinogen,Urine Normal (Normal); WBC,Urine 15-30 per hpf (0-3)
[2020-09-04 02:09] LABS: Calcium 9.7 mg/dL (8.6-10.3); Magnesium 1.6 mg/dL (1.6-2.6); Phosphorous 6.4 mg/dL (2.7-4.5); Potassium 4.6 mEq/L (3.5-5.1)
[2020-09-04] MEDS: *HR* Heparin 5,000 UNIT/ML VIAL SQ SCH ×2 (05:48→16:23)
[2020-09-04] MEDS: Budesonide/Formoterol 160/4.5 1 PUFF INH IH SCH ×2 (08:00→23:09)
[2020-09-04] MEDS: Insulin LISPRO 300 UNITS/3 ML VIAL SUBQ SCH ×3 (08:05→16:22)
[2020-09-04] MEDS: Albumin 25% 25gram/100mL 25 GM/100 ML IV.SOLN IVPB SCH ×2 (08:05→16:22)
[2020-09-04] MEDS: Bumetanide 1 MG/4 ML VIAL IVP SCH ×2 (08:08→16:23)
[2020-09-04] MEDS: Aspirin Enteric Coated 81 MG Tablet PO SCH (08:08)
[2020-09-04] MEDS: hydrALAZINE 25 MG TABLET PO SCH ×3 (08:08→20:01)
[2020-09-04] MEDS: amLODIPine 5 MG TABLET PO SCH (08:09)
[2020-09-04] MEDS ORDERED: Bumetanide 1 MG/4 ML VIAL IVP ONE (10:52)
[2020-09-04] MEDS ORDERED: Albumin 25% 25gram/100mL 25 GM/100 ML IV.SOLN IVPB ONE (10:52)
[2020-09-04] MEDS ORDERED: Perflutren Lipid Microsphere 1.3 ML in 0.9 % Sodium Chloride 8.7 ML IVP PRN (10:55)
[2020-09-04] MEDS ORDERED: 0.9 % Sodium Chloride 250 ML IVC PRN (11:35)
[2020-09-04] MEDS ORDERED: 0.9 % Sodium Chloride 1,000 ML PRIME SCH (11:45)
[2020-09-04] MEDS ORDERED: *HR* Heparin 10,000 UNIT/10 ML VIAL IV PRN (11:55)
[2020-09-04 12:00] LABS: Calcium 10.2 mg/dL (8.6-10.3); Potassium 5.1 mEq/L (3.5-5.1)
[2020-09-04] MEDS ORDERED: 0.9 % Sodium Chloride 500 ML ONE (13:21)
[2020-09-04] MEDS ORDERED: *HR* Heparin 5,000 UNIT/ML VIAL ONE (13:45)
[2020-09-04 14:22] LABS: Hepatitis B Surface Antibody < 3.10 mIU/mL
[2020-09-04 14:33] LABS: Hepatitis B Surface Antigen Nonreactive (Nonreactive)
[2020-09-04] MEDS: *HR* LORazepam 2 MG/ML VIAL IVP PRN (20:49)
[2020-09-04] MEDS: ALPRAZolam 1 MG TABLET PO PRN (23:58)
[2020-09-05] MEDS: Morphine Sulfate 2 MG/ML SYRINGE IVP PRN ×2 (00:47→03:36)
[2020-09-05] MEDS ORDERED: Dexmedetomidine HCl 400 MCG/100 ML MLS IVC SCH (02:30)
[2020-09-05] MEDS: *HR* Heparin 5,000 UNIT/ML VIAL SQ SCH (05:46)
[2020-09-05] MEDS ORDERED: *HR* Heparin 10,000 UNIT/10 ML VIAL IV PRN (07:28)
[2020-09-05] MEDS ORDERED: 0.9 % Sodium Chloride 250 ML IVC PRN (07:28)
[2020-09-05] MEDS ORDERED: 0.9 % Sodium Chloride 1,000 ML PRIME SCH (07:30)
[2020-09-05] MEDS: Albumin 25% 25gram/100mL 25 GM/100 ML IV.SOLN IVPB SCH (07:54)
[2020-09-05] MEDS: Bumetanide 1 MG/4 ML VIAL IVP SCH (07:59)
[2020-09-05] MEDS: Insulin LISPRO 300 UNITS/3 ML VIAL SUBQ SCH ×2 (08:04→12:45)
[2020-09-05] MEDS: Aspirin Enteric Coated 81 MG Tablet PO SCH (08:09)
[2020-09-05] MEDS: hydrALAZINE 25 MG TABLET PO SCH (08:09)
[2020-09-05] MEDS: amLODIPine 5 MG TABLET PO SCH (08:09)
[2020-09-05] MEDS: Budesonide/Formoterol 160/4.5 1 PUFF INH IH SCH (08:16)
[2020-09-05] MEDS ORDERED: *HR* LORazepam 2 MG/ML VIAL IVP PRN (11:35)
[2020-09-05] MEDS ORDERED: Haloperidol Lactate 5 MG/ML VIAL IVP ONE (11:35)
[2020-09-05] MEDS ORDERED: Morphine Sulfate 2 MG/ML SYRINGE IVP PRN (11:36)
[2020-09-05 12:48] VITALS: BP 136/62
== END 2020-09-05 13:10 | disposition hospice, inpatient (51) | DRG 291 ==
LOC: 2ANU 12:46 → EMEROOARM 12:46 → 2ANU 16:29 → SUATTDRO 09-01 17:46 → 2NNU 09-02 04:56 → 2ANU 09-05 12:44
PROVIDERS: ADMIT Internal Medicine; ATTEND Pharmacist

== ENCOUNTER 2020-09-05 12:18 | Inpatient (IN) ==
[2020-09-05] MEDS ORDERED: Atropine 1% Opth Drops 100 DROP/5 ML BOTTLE SL PRN (12:47)
[2020-09-05] MEDS ORDERED: Haloperidol Lactate 5 MG/ML VIAL IVP PRN (12:57)
[2020-09-05] MEDS: Morphine Sulfate Oral CONC 10 MG/0.5 ML ORAL.SYG SL SCH ×4 (13:43→23:42)
[2020-09-05] MEDS: *HR* LORazepam 2 MG/ML VIAL IVP PRN (13:43)
[2020-09-05] MEDS: *HR* LORazepam Oral Conc 2 MG/ML SL SCH ×3 (15:52→23:41)
[2020-09-06] MEDS: *HR* LORazepam 2 MG/ML VIAL IVP PRN ×7 (01:21→21:44)
[2020-09-06] MEDS: Morphine Sulfate Oral CONC 10 MG/0.5 ML ORAL.SYG SL SCH ×6 (04:09→23:33)
[2020-09-06] MEDS: *HR* FentaNYL (PF) 100 MCG/2 ML VIAL IVP PRN ×11 (04:16→22:28)
[2020-09-06] MEDS: *HR* LORazepam Oral Conc 2 MG/ML SL SCH ×4 (05:58→23:33)
[2020-09-06] MEDS ORDERED: Acetaminophen 650 MG RECTAL SUPP RC PRN (08:26)
[2020-09-06] MEDS ORDERED: Haloperidol Lactate 5 MG/ML VIAL IVP PRN (09:37)
[2020-09-06] MEDS: Haloperidol Oral Conc 10 MG/5 ML UDC PO SCH ×3 (10:20→21:43)
[2020-09-07 00:21] VITALS: BP 124/63
== END 2020-09-07 00:33 | disposition expired | DRG 951 ==
LOC: 2ANU 13:11
PROVIDERS: ADMIT Internal Medicine Hospice and Palliative Medicine; ATTEND Internal Medicine Hospice and Palliative Medicine